=== PATIENT | male | born 1995 | race Caucasian/White ===

== ENCOUNTER 2018-09-12 15:30 | Emergency (ER) | payer BC ==
[~2018-09-12] VITALS: Ht 180.3 cm; Wt 84.0 kg
[2018-09-12 15:38] VITALS: BP 137/67
--- NOTE | 2018-09-12 15:43 | NUR ---
pt seen and examined by BARBARA Alicea, per BARBARA pt does not need c collar/c spine precautions
[2018-09-12] MEDS ORDERED: IBUPROFEN 800 MG TABLET PO ONE (16:00)
[2018-09-12] MEDS ORDERED: IBUPROFEN 800 MG TABLET ONE (16:06)
--- NOTE | 2018-09-12 16:22 | NUR ---
Discharge instructions discussed with patient including when to return to emergency department, patient verbalizes understanding. Patient ambulates with steady gait to discharge desk in no acute distress.
== END 2018-09-12 16:25 | disposition home or self-care (01) ==
LOC: ED 16:06
DX: S09.8XXA Other specified injuries of head, initial encounter (principal); W17.81XA Fall down embankment (hill), initial encounter; Y93.89 Activity, other specified; Y92.328 Other athletic field as the place of occurrence of the external cause; Y99.8 Other external cause status
CPT/HCPCS: 99283